=== PATIENT | male | born 1975 | race Caucasian/White ===

== ENCOUNTER 2022-10-18 07:22 | Day surgery (SDC) | payer OTHER ==
[~2022-10-18] VITALS: Ht 170.2 cm; Wt 102.3 kg
[2022-10-18] MEDS ORDERED: PROZAC 20MG20 MG PO (08:05)
[2022-10-18] MEDS ORDERED: RITALIN 20M20 MG/TAB PO (08:06)
[2022-10-18] MEDS ORDERED: NAPROSYN500 MG PO (08:06)
[2022-10-18] MEDS ORDERED: INDERAL 20MG20 MG PO (08:07)
[2022-10-18] MEDS ORDERED: PRILOSEC 20MG20 MG PO (08:07)
[2022-10-18] MEDS ORDERED: HYTRIN 5MG C5 MG/CAP PO (08:08)
[2022-10-18] MEDS ORDERED: ZANAFLEX CAPSULE4 MG PO (08:08)
[2022-10-18] MEDS ORDERED: DESYREL DIVIDO150 M1 PO (08:09)
[2022-10-18] MEDS ORDERED: ULTRAM 50MG TAB50 MG PO (08:09)
[2022-10-18 08:19] VITALS: BP 122/82; PULSE 73; TEMP 97.4
[2022-10-18 09:20] VITALS: BP 120/87; PULSE 60; TEMP 98.6
[2022-10-18 09:35] VITALS: BP 129/77; PULSE 61
[2022-10-18 09:50] VITALS: BP 122/76; PULSE 58
--- NOTE | 2022-10-18 16:03 | NUR ---
0920: PATIENT TO BAY 7 PER CART FROM ENDO SUITE. REPORT RECEIVED FROM ENDO NURSE. VS OBTAINED. BREATHING EVEN AND UNLABORED. PATIENT GIVEN WATER AND SALTINES. NO C/O NAUSEA OR PAIN AT THIS TIME. RESTING IN RECLINER. AT BEDSIDE. CALL LIGHT IN REACH. 0935: VS REMAIN STABLE. PATIENT ALERT AND ORIENTED. PATIENT TOLERATING FOOD AND DRINK. DENIES ANY NAUSEA OR PAIN AT THIS TIME. REMAINS AT SIDE. CALL LIGHT IN REACH. 0950: VS REMAIN STABLE. PATIENT HAS NO C/O NAUSEA OR PAIN AT THIS TIME. RESTING IN RECLINER. CALL LIGHT IN REACH. 0955: IV DC'D AT THIS TIME. 1000: DR. BRIDGES IN TO SEE PATIENT AT THIS TIME. 1005: DISCHARGE EDUCATION COMPLETED AT THIS TIME. PATIENT STATED UNDERSTANDING OF INSTRUCTIONS. DISCHARGE PAPERWORK GIVEN TO PATIENT. PATIENT DENIES NEEDING ASSISTANCE WITH DRESSING. 1010: PATIENT OFF UNIT VIA WHEELCHAIR. PATIENT DISCHARGED TO HOME WITH VIA PERSONAL VEHICLE.
== END 2022-10-18 10:10 | disposition home or self-care (01) ==
LOC: SDCO 07:22
DX: K62.89 Other specified diseases of anus and rectum (principal); K59.00 Constipation, unspecified; R19.8 Other specified symptoms and signs involving the digestive system and abdomen; Z83.79 Family history of other diseases of the digestive system; Z87.891 Personal history of nicotine dependence
CPT/HCPCS: J2704; J7120